=== PATIENT | male | born 1965 | race Caucasian/White ===

== ENCOUNTER 2018-01-10 07:48 | Inpatient (IN) | payer OTHER ==
[~2018-01-10] VITALS: Ht 175.3 cm; Wt 77.6 kg
[2018-01-10] VITALS (15 sets, daily range): BP systolic 68–139; BP diastolic 37–88
[2018-01-10] MEDS ORDERED: FOSAMAX 70 MG T70 MG PO (08:06)
[2018-01-10] MEDS ORDERED: AXIRON30 MG/1.5 IM (08:07)
[2018-01-10 08:35] LABS: URINE BILIRUBIN NEGATIVE (Negative); URINE BLOOD NEGATIVE (Negative); URINE CLARITY CLEAR; URINE COLOR YELLOW; URINE GLUCOSE-RANDOM NEGATIVE (Negative); URINE KETONES NEGATIVE (Negative); URINE LEUKOCYTES-REFLEX NEGATIVE (Negative); URINE NITRITE-REFLEX NEGATIVE (Negative); URINE PROTEIN NEGATIVE (Negative); URINE UROBILINOGEN 0.2 E.U./dl (0.2-1.0)
[2018-01-10 08:50] LABS: ABSOLUTE LYMPHOCYTES 1.2 thou/uL (0.8-5.3); ABSOLUTE MONOCYTES 0.8 thou/uL (0.0-1.2); ABSOLUTE NEUTROPHILS 6.6 thou/uL (1.6-8.1); BASOPHILS 0.3 %; EOSINOPHILS 0.1 %; HEMOGLOBIN 15.4 gm/dL (14.0-18.0); LYMPHOCYTES 13.7 %; MCH 34.2 pg (26.0-34.0); MCHC 34.9 g/dL (28.0-37.0); MCV 97.9 fL (80.0-100.0); MONOCYTES 8.8 %; NUCLEATED RBCS 0 /100WBC; PLATELET COUNT* 244 thou/uL (150-400); POLYS 77.1 %; RBC 4.49 mil/uL (4.50-6.00); RDW-CV 13.4 % (10.5-14.5); WBC 8.6 thou/uL (4.0-11.0)
[2018-01-10 08:58] LABS: ANION GAP 9 mmol/L (7-16); BUN 10 mg/dL (7-18); CALCIUM 8.5 mg/dL (8.5-10.1); CHLORIDE 104 mmol/L (98-107); CO2 28 mmol/L (21-32); CREATININE 1.2 mg/dL (0.6-1.3); GLUCOSE 95 mg/dL (70-99); POTASSIUM 3.4 mmol/L (3.5-5.1); SODIUM 141 mmol/L (136-145)
[2018-01-10 08:59] LABS: APTT 24.1 Seconds (25.0-31.3); INR 1.1; PROTIME 10.9 Seconds (9.20-11.50)
[2018-01-10 09:05] LABS: ALBUMIN 3.8 g/dL (3.4-5.0); ALKALINE PHOSPHATASE 72 U/L (46-116); MAGNESIUM 1.8 mg/dL (1.8-2.4); SGOT 18 U/L (15-37); SGPT 24 U/L (30-65); TOTAL BILIRUBIN 0.5 mg/dL (<0.1-1.0); TOTAL PROTEIN 7.1 g/dL (6.4-8.2); TROPONIN-I LEVEL <0.06 ng/mL (<0.06)
[2018-01-10] MEDS ORDERED: DDAVP0.1 MG/1 M NASAL (09:56)
[2018-01-10] MEDS ORDERED: CENTRUM SILVER1 EAC2 PO (09:57)
[2018-01-10] MEDS ORDERED: SYNTHROID75 MCG PO (09:57)
[2018-01-10] MEDS ORDERED: TUMS PO (09:58)
[2018-01-10] MEDS ORDERED: TESTONE CI200 MG/1 M IM (09:58)
[2018-01-10] MEDS ORDERED: PREDNISONE 2.52.5 M1 PO (09:59)
[2018-01-10] MEDS ORDERED: PREDNISONE 5 MG5 M1 PO (09:59)
[2018-01-10] MEDS ORDERED: CHILDREN'S ASPI81 M1 PO (10:00)
[2018-01-10] MEDS ORDERED: DEPO-TESTO100 MG/1 M IM (10:00)
[2018-01-10] MEDS ORDERED: BINOSTO70 MG PO (10:01)
[2018-01-10] MEDS ORDERED: ZOLOFT 50 MG TA50 MG PO (10:02)
[2018-01-10] MEDS ORDERED: ZOCOR40 MG PO (10:02)
--- NOTE | 2018-01-10 11:06 | EKG ---
[place] [address] ELECTROCARDIOGRAM REPORT Name: LEO AHMADI Room: [place] [address] ADM IN R.#: [id number] Admission: 01/10/18 Attend Phys: Gonzalo Hameed MD Discharge: Date of : 61 Report #: [id number] THIS REPORT FOR: //name// [facility] ED Test Date: 2018-01-10 Test Time: 07:58:45 Pat Name: LEO AHMADI Department: Room: [facility] Gender: M Security Clerk: Myesha : 1965 Requested By: Aurelia Torres Order Number: [id number] MD: Zoltan Latham Measurements Intervals [place] Rate: 68 P: CT: QRS: -7 QRSD: 93 T: 32 QT: 399 QTc: 425 Interpretive Statements sinus rhythm LVH Compared to ECG 09/21/2008 08:21:39 ST (T wave) deviation now present no change Electronically Signed On 01-10-2018 11:05:56 RETAIL MARKETING COORDINATOR by Zoltan Latham [email or web address] <ELECTRONICALLY SIGNED> By: Zoltan Latham MD, [facility] 01/10/18 1105 0758 0758 Zoltan Latham MD, [facility] /EPI
[2018-01-10 13:26] LABS: INFLUENZA A ANTIGEN None Detected (None Detect); INFLUENZA B ANTIGEN None Detected (None Detect)
[2018-01-10 14:24] LABS: CALCIUM 8.3 mg/dL (8.5-10.1); CREATININE 1.2 mg/dL (0.6-1.3); POTASSIUM 3.3 mmol/L (3.5-5.1)
[2018-01-10 15:19] LABS: ABSOLUTE BASOPHILS 0.1 thou/uL (0.0-0.2); ABSOLUTE LYMPHOCYTES 2.7 thou/uL (0.8-5.3); ABSOLUTE MONOCYTES 1.1 thou/uL (0.0-1.2); ABSOLUTE NEUTROPHILS 7.6 thou/uL (1.6-8.1); BASOPHILS 0.6 %; EOSINOPHILS 0.1 %; HEMATOCRIT 43.8 % (42.0-52.0); HEMOGLOBIN 14.7 gm/dL (14.0-18.0); LYMPHOCYTES 23.5 %; MCH 33.3 pg (26.0-34.0); MCHC 33.6 g/dL (28.0-37.0); MCV 98.9 fL (80.0-100.0); MONOCYTES 9.9 %; MPV 7.7 fl. (7.2-11.1); NUCLEATED RBCS 0 /100WBC; PLATELET COUNT* 233 thou/uL (150-400); POLYS 65.9 %; RBC 4.43 mil/uL (4.50-6.00); RDW-CV 13.4 % (10.5-14.5); WBC 11.6 thou/uL (4.0-11.0)
[2018-01-10 15:28] LABS: APTT 24.7 Seconds (25.0-31.3); INR 1.2; PROTIME 11.4 Seconds (9.20-11.50)
--- NOTE | 2018-01-10 15:38 | 2DMMODE ---
[place] [address] 2 D/M-MODE ECHOCARDIOGRAM Name: LEO AHMADI Room: [address] IN [facility]#: [id number] Admission: 01/10/18 Attend Phys: Gonzalo Hameed, Discharge: Date of : 61 Date of Service: 01/10/18 1538 Report #: [id number] THIS REPORT FOR: //name// APPROVED REPORT Study performed: 01/10/2018 13:49:21 EXAM: Comprehensive 2D, Doppler, and color-flow Echocardiogram Patient Location: In-Patient Room #: [facility] Status: routine BSA: 1.91 HR: 84 bpm BP: 118/75 mmHg Rhythm: NSR Other Information Study Quality: Good Indications CVA/TIA Echo Enhancing Agent Indication: Rule out Shunt Agent(s) / Amount(s) Used: Agitated Saline 10 cc 2D Dimensions LVEF(%): 57.62 (>50%) IVSd: 12.65 (7-11mm) LVOT Diam: 22.01 (18-24mm) LVDd: 41.67 mm PWd: 8.67 (7-11mm) Ascending Ao: 38.55 (22-36mm) LVDs: 29.17 (25-40mm) Aortic Root: 39.70 mm Gao's LVEF: 57.62 % Volumes Left Atrial Volume (Systole) LA ESV Index: 20.60 mL/m2 Aortic Valve AoV Peak Chirag.: 1.32 m/s AO Peak Gr.: 6.97 mmHg LVOT Max P.80 mmHg AO Mean Gr.: 3.79 mmHg LVOT Mean P.16 mmHg LVOT Max V: 1.10 m/s AO V2 VTI: 20.54 cm LVOT Mean V: 0.66 m/[place] [address] 2 D/M-MODE ECHOCARDIOGRAM Name: LEO AHMADI Room: [address] IN [facility]#: [id number] Admission: 01/10/18 Attend Phys: Gonzalo Hameed, Discharge: Date of : 61 Date of Service: 01/10/18 1538 Report #: [id number] FRAN (VTI): 3.32 cm2 LVOT V1 VTI: 17.90 cm Mitral Valve E/A Ratio: 1.13 MV Decel. Time: 176.12 ms MV E Max Chirag.: 0.71 m/s MV PHT: 51.07 ms MVA (PHT): 4.31 cm2 TDI E/Lateral E': 3.94 E/Medial E': 7.10 Medial E' Chirag.: 0.10 m/s Lateral E' Chirag.: 0.18 m/s Pulmonary Valve PV Peak Chirag.: 1.02 m/s PV Peak Gr.: 4.19 mmHg Tricuspid Valve TR Peak Gr.: 18.40 mmHg RVSP: 23.00 mmHg Left Ventricle The left ventricle is normal size. There is normal LV segmental wall motion. There is normal left ventricular wall thickness. Left ventricular systolic function is normal. LVEF is 55-60%. Transmitral Doppler flow pattern suggests impaired LV relaxation. Right Ventricle The right ventricle is normal size. The right ventricular systolic function is normal. Atria The left atrium size is normal. Interatrial septum is intact without evidence of ASD or PFO. The right atrium size is normal. Aortic Valve Mild aortic valve sclerosis. No aortic regurgitation is present. There is no aortic valvular stenosis. Mitral Valve The mitral valve is normal in structure. Mild mitral regurgitation. No evidence of mitral valve stenosis. Tricuspid Valve The tricuspid valve is normal in structure. Trace tricuspid regurgitation. The RVSP is ___23____ [place] [address] 2 D/M-MODE ECHOCARDIOGRAM Name: LEO AHMADI Room: [address] IN M.R.#: [id number] Admission: 01/10/18 Attend Phys: Gonzalo Hameed, Discharge: Date of : 61 Date of Service: 01/10/18 1538 Report #: [id number] Pulmonic Valve The pulmonary valve is normal in structure. There is no pulmonic valvular regurgitation. Great Vessels Aortic root is mildly dilated. IVC is not visualized. Pericardium There is no pericardial effusion. <Conclusion> The left ventricle is normal size. There is normal left ventricular wall thickness. Left ventricular systolic function is normal. LVEF is 55-60%. Transmitral Doppler flow pattern suggests impaired LV relaxation. Mild mitral regurgitation. Trace tricuspid regurgitation. The RVSP is ___23____ mmHg. Aortic root is mildly dilated. Interatrial septum is intact without evidence of ASD or PFO. <ELECTRONICALLY SIGNED> By: Trent Johnson MD, FACC 01/10/18 1538 1538 1538 Trent Johnson MD, FACC /INF
[2018-01-10 15:40] LABS: CALCIUM 8.2 mg/dL (8.5-10.1); CREATININE 1.1 mg/dL (0.6-1.3); POTASSIUM 3.6 mmol/L (3.5-5.1)
[2018-01-10 15:46] LABS: ALBUMIN 3.7 g/dL (3.4-5.0); PHOSPHORUS* 1.7 mg/dL (2.5-4.9); TOTAL BILIRUBIN 0.6 mg/dL (<0.1-1.0); TOTAL PROTEIN 6.6 g/dL (6.4-8.2)
--- NOTE | 2018-01-10 18:10 | CON ---
[address] [address] CONSULTATION Name: LEO AHMADI Room: [address] IN M.R.#: [id number] Admission: 01/10/18 Attend Phys: Gonzalo Hameed MD Discharge: Date of : 61 Report #: [id number] THIS REPORT FOR: //name// CC: Gonzalo Almanza [facility] DATE OF SERVICE: 01/10/2018 HISTORY OF PRESENT ILLNESS: This is a 52-year-old male patient who was evaluated by me in the emergency room for weakness on the left side. I talked to Dr. Torres on the phone and then came from [facility] to see him. Initial history was that the patient's symptoms started at 6:00. Both brother as well as the patient indicated that the symptoms happen at 6:00. Whether he was completely normal when he woke up this morning is not clear. His symptom has fluctuated a lot. Talking to Dr. Torres, it would appear that when the patient came, he did not have hemianopsia and nurses also tell me that the symptom has fluctuated a lot. I discussed the patient with him as well as the brother. He has lived with the brother for 20 years. Brother is not completely certain whether he woke up completely fine or not, but definitely at 6:00, he was abnormal. He is pretty certain that he had multiple episodes like this. Sometimes they affect the left side and sometime they affect the right side. He sees Dr. Navas a neurologist at [place], but does not know what medicine he has taken for this. 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 He does have a history of migraine headache. He works at [employer] and has done that for a long time. PAST MEDICAL HISTORY: Positive for migraine and he is very definite that he had multiple episodes like this and they were as severe as this one is. FAMILY HISTORY: Negative for early age stroke. History is not very clear from the patient or from the brother. PHYSICAL EXAMINATION: The patient's examinations indicate that this patient is alert, responsive, he can follow simple commands. He is pretty definite that he had multiple episodes like this and they were associated with hemiplegic migraine. He describes them as TIA. He is oriented. His cranial nerve examination demonstrated what appeared to be pretty dense left hemianopsia. He is definitely weak on the left side as compared to the right side. He also has neglect there. The symptoms fluctuate. His reflexes still are symmetrical. He is not having any respiratory difficulty. Cardiac examinations appear noncontributory. IMPRESSION: This is a very difficult patient to evaluate. The patient has symptoms suggestive of cerebrovascular accident, which started at 6:00, [place] [address] CONSULTATION Name: LEO AHMADI Room: [address] IN ..#: [id number] Admission: 01/10/18 Attend Phys: Gonzalo Hameed MD Discharge: Date of : 61 Report #: [id number] may have woken up with at least some symptoms. They have fluctuated a lot. Talking to Dr. Torres, it would appear that the patient's symptoms have become much better and then they came back and they have been fluctuating. I evaluated this patient for intervention. The best I can tell the time of onset is at 6:00 or earlier. Because of that, the patient is not a TPA candidate, either in the 3-hour window or in 4-1/2-hour window. I got the CT angio and perfusion done in this patient and I reviewed the films with the radiologist who is different than the interpreting physician and they both think they are normal. Because of that, he is not a thrombectomy candidate either. The patient had these symptoms in the past and it has happened multiple times and the question is whether they are hemiplegic migraine. Hemiplegic migraine can also lead to stroke ultimately. I discussed the situation with Dr. Torres and unfortunately this patient is not any intervention candidate at the moment. He is not any TPA candidate even if the time of onset is taken at 6:00 a.m. and definitely not if it was earlier than that, which may have been. He is not an intervention candidate if his CT angiogram and perfusion is normal, which is according to radiologist. I will give him Depakote, we will give him normal saline and I discussed his options with him and we will discuss his options with him again, but I do not believe this patient has any intervention option at the moment. Thank you very much for this referral. <ELECTRONICALLY SIGNED> By: Sav Scott MD 01/10/18 1810 1110 1159Sav Scott MD /nt
[2018-01-10 18:42] LABS: AMYLASE 76 U/L (25-115); LIPASE 273 U/L (73-393)
[2018-01-10 19:28] LABS: BE -1.8 mmol/L (-2 to +3); HCO3 22.3 mmol/L (22.0-26.0); PCO2 VENOUS 36.4 mmHg (41.0-51.0); PO2 VENOUS 54.6 mmHg (35.0-45.0)
[2018-01-11] VITALS (21 sets, daily range): BP systolic 61–119; BP diastolic 35–81
[2018-01-11 02:07] LABS: GLYCOHEMOGLOBIN (HGB A1C) 5.2 % (4.8-5.6)
[2018-01-11 04:00] LABS: HEMATOCRIT 39.8 % (42.0-52.0); HEMOGLOBIN 13.2 gm/dL (14.0-18.0); MCH 33.1 pg (26.0-34.0); MCHC 33.3 g/dL (28.0-37.0); MCV 99.5 fL (80.0-100.0); MPV 7.9 fl. (7.2-11.1); RDW-CV 13.5 % (10.5-14.5); WBC 13.4 thou/uL (4.0-11.0)
[2018-01-11 04:37] LABS: ANION GAP 10 mmol/L (7-16); BUN 8 mg/dL (7-18); CALCIUM 6.9 mg/dL (8.5-10.1); CHLORIDE 107 mmol/L (98-107); CHOLESTEROL 143 mg/dL (<200); CO2 23 mmol/L (21-32); CREATININE 1.3 mg/dL (0.6-1.3); GLUCOSE 115 mg/dL (70-99); HDL CHOLESTEROL 41 mg/dL (>40); LDL CHOLESTEROL 75 mg/dL (<100); POTASSIUM 3.6 mmol/L (3.5-5.1); SODIUM 140 mmol/L (136-145); TC:HDL 3.5 Ratio (Not establshd); TRIGLYCERIDE 137 mg/dL (<150); VLDL 27 mg/dL (<40)
[2018-01-11 05:07] LABS: SERUM ASSESSMENT CLEAR
[2018-01-12] VITALS (8 sets, daily range): BP systolic 94–113; BP diastolic 62–77
[2018-01-12 04:34] LABS: ALBUMIN 2.7 g/dL (3.4-5.0); CREATININE 0.9 mg/dL (0.6-1.3); PHOSPHORUS* 2.3 mg/dL (2.5-4.9); POTASSIUM 3.8 mmol/L (3.5-5.1); TOTAL BILIRUBIN 0.6 mg/dL (<0.1-1.0); TOTAL PROTEIN 5.7 g/dL (6.4-8.2)
[2018-01-12 05:59] LABS: HEMATOCRIT 38.9 % (42.0-52.0); HEMOGLOBIN 13.2 gm/dL (14.0-18.0); MCH 33.5 pg (26.0-34.0); MCHC 33.9 g/dL (28.0-37.0); MCV 98.6 fL (80.0-100.0); MPV 7.7 fl. (7.2-11.1); NUCLEATED RBCS 0 /100WBC; PLATELET COUNT* 155 thou/uL (150-400); RBC 3.94 mil/uL (4.50-6.00); RDW-CV 13.2 % (10.5-14.5); WBC 13.3 thou/uL (4.0-11.0)
[2018-01-12 06:42] LABS: ABSOLUTE LYMPHOCYTES 0.4 thou/uL (0.8-5.3); ABSOLUTE MONOCYTES 0.3 thou/uL (0.0-1.2); ABSOLUTE NEUTROPHILS 12.6 thou/uL (1.6-8.1); ANISOCYTOSIS 1+; PLATELET ESTIMATE ADEQUATE; POIKILOCYTOSIS 1+
--- NOTE | 2018-01-12 10:35 | CON ---
[address] [address] CONSULTATION Name: LEO AHMADI Room: [address] IN M.R.#: [id number] Admission: 01/10/18 Attend Phys: Gonzalo Hameed MD Discharge: Date of : 61 Report #: [id number] THIS REPORT FOR: //name// CC: Gonzalo Almanza Lisa DATE OF SERVICE: 01/11/2018 ATTENDING PHYSICIAN: Gonzalo Hameed M.D. REASON FOR EVALUATION: Febrile illness, sepsis. HISTORY OF PRESENT ILLNESS: Chart reviewed, the patient examined. This is a 52-year-old with history of previous brain tumor resection and radiation, described as benign. Did require shunt for a period of time. Does have a history of migraines. He presented with onset fairly abruptly of severe headache, did have some left-sided hemiplegia as well. Evaluation including exclusion of a stroke was undertaken, turned out not to be the case. It is not clear that he had initial fevers; however, developed a temperature elevation to 103.3. He was empirically started on combination antibiotics of vancomycin, ceftriaxone. Imaging was otherwise unrevealing. He is somewhat better today, although states he has a somewhat stiff neck, although he attributed it more to position. He is completely lucid at this point. His temperature is down. He denies significant pulmonary or gastrointestinal related complaints. He does work at [employer] and certainly could be exposed to ill person. Further evaluation including chest x-ray, UA, blood cultures are all unrevealing thus far. ALLERGIES: MORPHINE. CURRENT MEDICATIONS: Include ceftriaxone, sertraline, vancomycin, desmopressin. He is on norepinephrine, aspirin, levothyroxine, hydrocortisone. PAST MEDICAL HISTORY: As described above, like pituitary adenoma, now panhypopituitarism, known history of renal lithiasis, lithotripsies, hyperlipidemia, history of migraines. SOCIAL HISTORY: Nonsmoker, no ethanol. FAMILY HISTORY: Noncontributory. REVIEW OF SYSTEMS: As above. PHYSICAL EXAMINATION: GENERAL: He is alert, cooperative, seems to be quite lucid, appears to be in [id number] [place] [address] CONSULTATION Name: LEO AHMADI Room: [address]#: [id number] Admission: 01/10/18 Attend Phys: Gonzalo Hameed MD Discharge: Date of : 61 Report #: [id number] VITAL SIGNS: Temperature 99.7 after T-max of 103.3, pulse 66, respirations 20, blood pressure is 92/64. SKIN: Warm, dry. No rashes. No diaphoresis. HEENT: Does have some movement of the cervical spine without meningismus. LUNGS: Somewhat diminished, otherwise few scattered crackles. HEART: Regular. I do not appreciate a murmur. ABDOMEN: Soft, nontender, nondistended. EXTREMITIES: No cyanosis. GENITOURINARY: Deferred. RECTAL: Deferred. LABORATORY DATA: Blood cultures sterile thus far. Electrolytes: Sodium 140, potassium 3.6, chloride 107, bicarbonate is 23, anion gap of 10, BUN and creatinine 8 and 1.3, estimated GFR 58. Initial lactic acid was 2.1. Sed rate was 0. Influenza antigen was negative. CT stroke protocol was unremarkable. Liver functions were otherwise unremarkable. Urinalysis without abnormalities microscopically. Chest x-ray showed no acute process. Echo, EF of 55-60%, mild mitral regurgitation, no evidence of vegetation. ASSESSMENT: Febrile illness of uncertain etiology, certainly appears to have responded to resuscitative measures as well as perhaps empiric antimicrobials. We will check viral respiratory panel. Continue empiric antibiotics at this point. Await culture results. Monitor expectantly for evidence of localizing and pyogenic infection. <ELECTRONICALLY SIGNED> By: Kel Palomino MD 01/12/18 1035 1349 1854Joangelia Palomino MD /nt
--- NOTE | 2018-01-12 11:53 | EEG ---
[address] [address] EEG STUDY REPORT Name: LEO AHMADI Room: [address] IN M.R.#: [id number] Admission: 01/10/18 Attend Phys: Gonzalo Hameed MD Discharge: Date of : 61 Report #: [id number] THIS REPORT FOR: //name// CC: Gonzalo Almanza [facility] DATE OF SERVICE: 01/10/2018 This patient's EEG was done by placing the electrodes by standard 10-20 system of electrode placement. Both referential and sequential montages were used for recording. Background activity on the left side is about 8 Hz and 40 microvolt. It appeared to be suppressed on the right side. A lot of artifact is present, making the interpretation of this EEG very difficult. Most of the artifact is muscle artifact, but some electronic artifact is also present. No active epileptiform activity was noticed during this record. IMPRESSION: This patient's EEG does not demonstrate any active epileptiform activity. EEG does demonstrate that the activity appeared to be suppressed on the right side. That may be because of the patient's hemiplegic migraine and it can also be because of stroke. The patient had multiple other workups including perfusion scan and CT angio which has been normal. Clinical correlation is recommended in this complicated patient. Thank you very much for this referral. <ELECTRONICALLY SIGNED> By: Sav Scott MD 01/12/18 1153 1833 1906MD chris Yang
--- NOTE | 2018-01-12 12:59 | EKG ---
[place] [address] ELECTROCARDIOGRAM REPORT Name: LEO AHMADI Room: [address] ADM IN .R.#: [id number] Admission: 01/10/18 Attend Phys: Gonzalo Hameed MD Discharge: Date of : 61 Report #: [id number] THIS REPORT FOR: //name// [facility] Test Date: 2018-01-12 Test Time: 02:36:28 Pat Name: LEO AHMADI Department: Room: [facility] Gender: M Entry Level Buyer: UNKNOWN : 1965 Requested By: Gonzalo Hameed Order Number: [id number] MD: Zoltan Latham Measurements Intervals [place] Rate: 66 P: 17 [place]: 160 QRS: -13 QRSD: 94 T: 8 QT: 436 QTc: 457 Interpretive Statements Sinus rhythm Left ventricular hypertrophy Electronically Signed On 01-12-2018 12:59:09 CORE FITTER by Zoltan Latham [email or web address] <ELECTRONICALLY SIGNED> By: Zoltan Latham MD, [facility] 01/12/18 1259 0236 0236 Zoltan Latham MD, FACC /EPI
--- NOTE | 2018-01-12 12:59 | EKG ---
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 : 1965 Requested By: Gonzalo Hameed Order Number: [id number] MD: Zoltan Latham Measurements Intervals [place] Rate: 68 P: 20 SC: 160 QRS: -13 QRSD: 94 T: 8 QT: 419 QTc: 446 Interpretive Statements Sinus rhythm Left ventricular hypertrophy Compared to ECG 01/10/2018 07:58:45 No significant changes Electronically Signed On 01-12-2018 12:58:50 SDC TEACHER by Zoltan Latham [email or web address] <ELECTRONICALLY SIGNED> By: Zoltan Latham MD, [facility] 01/12/18 1258 0233 0233 Zoltan Latham MD, [facility] /EPI
[2018-01-13] VITALS: BP 138/55; BP 95/63
[2018-01-13 04:54] LABS: ABSOLUTE LYMPHOCYTES 1.3 thou/uL (0.8-5.3); ABSOLUTE NEUTROPHILS 9.7 thou/uL (1.6-8.1); BASOPHILS 0.1 %; EOSINOPHILS 0.2 %; HEMATOCRIT 33.6 % (42.0-52.0); HEMOGLOBIN 11.7 gm/dL (14.0-18.0); LYMPHOCYTES 10.9 %; MCH 34.3 pg (26.0-34.0); MCHC 34.7 g/dL (28.0-37.0); MCV 98.8 fL (80.0-100.0); MONOCYTES 8.6 %; MPV 8.4 fl. (7.2-11.1); NUCLEATED RBCS 0 /100WBC; PLATELET COUNT* 153 thou/uL (150-400); POLYS 80.2 %; RDW-CV 13.2 % (10.5-14.5); WBC 12.1 thou/uL (4.0-11.0)
[2018-01-13 05:02] LABS: ALBUMIN 2.4 g/dL (3.4-5.0); CALCIUM 7.2 mg/dL (8.5-10.1); CREATININE 0.8 mg/dL (0.6-1.3); TOTAL BILIRUBIN 0.6 mg/dL (<0.1-1.0); TOTAL PROTEIN 5.3 g/dL (6.4-8.2)
[2018-01-13 05:12] LABS: POTASSIUM 2.8 mmol/L (3.5-5.1)
[2018-01-13 09:32] VITALS: BP 106/72
[2018-01-13 15:31] VITALS: BP 115/74
[2018-01-13 20:00] VITALS: BP 117/82
[2018-01-14 07:35] LABS: HEMATOCRIT 37.2 % (42.0-52.0); HEMOGLOBIN 12.6 gm/dL (14.0-18.0); MCH 34.1 pg (26.0-34.0); MCHC 33.8 g/dL (28.0-37.0); MCV 100.9 fL (80.0-100.0); MPV 8.5 fl. (7.2-11.1); RBC 3.68 mil/uL (4.50-6.00); RDW-CV 13.6 % (10.5-14.5); WBC 9.9 thou/uL (4.0-11.0)
[2018-01-14 07:41] VITALS: BP 113/79
[2018-01-14 07:43] LABS: CALCIUM 7.6 mg/dL (8.5-10.1); CREATININE 0.8 mg/dL (0.6-1.3); POTASSIUM 3.9 mmol/L (3.5-5.1)
[2018-01-14 10:19] VITALS: BP 113/79
[2018-01-14] MEDS ORDERED: CEFUROXIME500 MG PO (15:25)
[2018-01-16 23:09] LABS: ADENOVIRUS Negative (Negative); INFLUENZA A Negative (Negative); INFLUENZA B Negative (Negative); METAPNEUMOVIRUS Negative (Negative); PARAINFLUENZA 1 Negative (Negative); PARAINFLUENZA 2 Negative (Negative); PARAINFLUENZA 3 Negative (Negative); RHINOVIRUS Negative (Negative); RSV A Negative (Negative); RSV B Negative (Negative)
== END 2018-01-14 16:45 | disposition home or self-care (01) | DRG 871 ==
LOC: M.ERS 07:48 → M.ICU 11:02 → M.TBA-ER 11:02 → M.ICU 11:46 → M.ORTHSURG 01-12 10:39
PROVIDERS: Personal Emergency Response Attendant; Psychiatry & Neurology Neuromuscular Medicine; Specialist; ADMIT Internal Medicine
PROC: 4A00X4Z Measurement of Central Nervous Electrical Activity, External Approach (ICD-10-PCS; principal; 2018-01-10)
DX: A41.9 Sepsis, unspecified organism (principal); G93.40 Encephalopathy, unspecified; R57.0 Cardiogenic shock; E23.0 Hypopituitarism; G81.94 Hemiplegia, unspecified affecting left nondominant side; E27.2 Addisonian crisis; E44.0 Moderate protein-calorie malnutrition; E78.5 Hyperlipidemia, unspecified; H53.47 Heteronymous bilateral field defects; G24.9 Dystonia, unspecified; G43.409 Hemiplegic migraine, not intractable, without status migrainosus; E87.5 Hyperkalemia; Z86.73 Personal history of transient ischemic attack (TIA), and cerebral infarction without residual deficits; Z79.899 Other long term (current) drug therapy; Z85.841 Personal history of malignant neoplasm of brain; Z79.82 Long term (current) use of aspirin; Z88.6 Allergy status to analgesic agent; Z92.3 Personal history of irradiation; Z68.25 Body mass index [BMI] 25.0-25.9, adult

== ENCOUNTER 2018-06-12 12:05 | Emergency (ER) | payer OTHER ==
[~2018-06-12] VITALS: Ht 175.3 cm; Wt 77.1 kg
[~2018-06-12 12:05] MED LIST: AXIRON30 MG/1.5 IM; BINOSTO70 MG PO; CEFUROXIME500 MG PO; CENTRUM SILVER1 EAC2 PO; CHILDREN'S ASPI81 M1 PO; DDAVP0.1 MG/1 M NASAL; DEPO-TESTO100 MG/1 M IM; FOSAMAX 70 MG T70 MG PO; PREDNISONE 2.52.5 M1 PO; PREDNISONE 5 MG5 M1 PO; SYNTHROID75 MCG PO; TESTONE CI200 MG/1 M IM; TUMS PO; ZOCOR40 MG PO; ZOLOFT 50 MG TA50 MG PO
[2018-06-12 12:47] LABS: ABSOLUTE LYMPHOCYTES 1.5 thou/uL (0.8-5.3); ABSOLUTE MONOCYTES 1.1 thou/uL (0.0-1.2); ABSOLUTE NEUTROPHILS 7.9 thou/uL (1.6-8.1); BASOPHILS 0.2 %; EOSINOPHILS 0.1 %; HEMATOCRIT 44.9 % (42.0-52.0); HEMOGLOBIN 15.1 gm/dL (14.0-18.0); LYMPHOCYTES 13.9 %; MCHC 33.6 g/dL (28.0-37.0); MONOCYTES 10.5 %; MPV 7.7 fl. (7.2-11.1); NUCLEATED RBCS 0 /100WBC; PLATELET COUNT* 260 thou/uL (150-400); POLYS 75.3 %; RBC 4.44 mil/uL (4.50-6.00); WBC 10.5 thou/uL (4.0-11.0)
[2018-06-12 13:03] LABS: CALCIUM 8.7 mg/dL (8.5-10.1); CREATININE 1.1 mg/dL (0.6-1.3); POTASSIUM 3.9 mmol/L (3.5-5.1)
[2018-06-12 13:07] LABS: ALBUMIN 3.8 g/dL (3.4-5.0); TOTAL BILIRUBIN 0.6 mg/dL (<0.1-1.0); TOTAL PROTEIN 7.2 g/dL (6.4-8.2)
[2018-06-12 15:03] LABS: URINE BILIRUBIN NEGATIVE (Negative); URINE BLOOD TRACE (Negative); URINE CLARITY CLEAR; URINE COLOR YELLOW; URINE GLUCOSE-RANDOM NEGATIVE (Negative); URINE KETONES NEGATIVE (Negative); URINE LEUKOCYTES-REFLEX NEGATIVE (Negative); URINE NITRITE-REFLEX NEGATIVE (Negative); URINE PROTEIN NEGATIVE (Negative); URINE UROBILINOGEN 0.2 E.U./dl (0.2-1.0)
[2018-06-12 15:12] VITALS: BP 128/86
== END 2018-06-12 15:14 | disposition home or self-care (01) ==
LOC: M.ERS 12:05
PROVIDERS: Emergency Medicine
DX: R33.9 Retention of urine, unspecified (principal); E78.5 Hyperlipidemia, unspecified; G43.909 Migraine, unspecified, not intractable, without status migrainosus; Z88.6 Allergy status to analgesic agent